=== PATIENT | female | born 1960 | race Caucasian/White ===

== ENCOUNTER → 2017-02-24 | Day surgery (SDC) | payer OTHER ==
[~2017-02-24] MED LIST: CELEXA10 MG; CITALOPRAM HBR40 MG PO; FOLIC ACID1 MG PO; LIBRIUM25 MG PO; LISINOPRIL; LISINOPRIL20 MG PO; MULTI VITAMIN1 EACH PO; NORCO 10-325 TA1 TAB PO; OMEPRAZOLE40 M1 PO; PHENERGAN25 M1; THIAMINE HCL100 M1 PO
--- NOTE | ~2017-02-24 | OR ---
Unit #: [id number] #: [id number] Patient: BRIAN RADER [id number] [facility] [address] [place], [place] [address] [id number] O MR#: [id number] NAME: BRIAN RADER ROOM: Date of Procedure: 02/24/2017 Admission Date: 02/24/2017 Surgeon: Lucien Lin M.D. : 1960 Attending Physician: Deion Lowe Jr., M.D. Referring Physician: Deion Lowe Jr., M.D. Primary Care Physician: Erin Duenas A.P.R.N. PROCEDURE OPERATIVE NOTE PREOPERATIVE DIAGNOSIS Heme-positive stool. POSTOPERATIVE DIAGNOSES 1. A 5 cm hiatal hernia. 2. Schatzki's ring. 3. Mild sigmoid diverticulosis. PROCEDURES PERFORMED 1. Esophagogastroduodenoscopy to the fourth portion of the duodenum with balloon dilatation of Schatzki's ring. 2. Colonoscopy to cecum. SURGEON Lucien Lin M.D. ANESTHESIA Monitored anesthesia. INDICATIONS A 57-year-old female was found to have persistent heme-positive stools and has never had endoscopic evaluation. PROCEDURE Patient admitted to [facility], positively identified, and transported to the endoscopy unit. After appropriate monitoring and positioning, a bite block was placed and she was sedated by the anesthesiologist. Endoscope was passed through the oral cavity into the esophagus under direct vision. We passed through the esophagus and into the stomach. The stomach was insufflated and we were able to pass through the pylorus down to the fourth portion of the duodenum. Duodenum and duodenal bulb were normal. As we came back in the stomach, the antrum and pyloric area was normal. In retroflexing the scope above the incisura, the upper fundus and cardia was unremarkable except for the visualized hiatal hernia. As I came back in a retrograde fashion, I measured the hernia at 5 cm with the GE junction being at 37 cm from the incisors. At the GE junction, she had a Schatzki's ring that was nonobstructing but because it was quite evident, I went ahead and dilated up sequentially to 20 mm. There was no esophagitis, no Ferreira's mucosa and the rest of the esophageal mucosa appeared normal. Larynx was not visualized due to coughing. Unit #: [id number] #: [id number] Patient: BRIAN RADER After completion of the upper scope, the patient was repositioned. On rectal examination, there was no local anorectal pathology. On digital examination, there were no palpable masses. Colonoscope was passed through the anal verge throughout the extent of the colon to the cecum where the appendiceal orifice and ileocecal valve were photo documented. On antegrade and retrograde visualization, no polyps were seen. She had a few scattered diverticula in the sigmoid colon but no evidence of diverticulitis or any recent bleeding. In the rectal vault, there is no internal hemorrhoidal disease. Patient tolerated procedure well, was transported to recovery in stable condition. Findings were discussed with her family. At this time, it is going to be recommended she stay on a liquid diet for 24 hours and she should be on a proton pump inhibitor for three months. Patient should have a recall colonoscopy for colorectal screening in 10 years. Dictated by... Naila Rojas/eli TD: 02/24/2017 16:25 JOB #: [id number] PROCEDURE OPERATIVE NOTE Page 1 of 1 X Lucien Lin MD X PROCEDURE OPERATIVE NOTE
== END | disposition home or self-care (01) ==
LOC: COPS 11:55
DX: K22.2 Esophageal obstruction (principal); K57.30 Diverticulosis of large intestine without perforation or abscess without bleeding; K44.9 Diaphragmatic hernia without obstruction or gangrene; M10.9 Gout, unspecified; Z86.19 Personal history of other infectious and parasitic diseases; Z80.0 Family history of malignant neoplasm of digestive organs; Z79.899 Other long term (current) drug therapy; Z90.710 Acquired absence of both cervix and uterus; Z98.890 Other specified postprocedural states
CPT/HCPCS: J2250